=== PATIENT | female | born 1980 | race Caucasian/White ===

== ENCOUNTER 2016-06-20 16:56 | Emergency (ER) | payer MEDICARE, MEDICAID ==
[~2016-06-20] VITALS: Ht 177.8 cm; Wt 70.5 kg
[~2016-06-20 16:56] MED LIST: AMERGE PO; DIL2 PO; FLUO20SO PO; HYDR1TAB69 PO; KETO10TA PO; PREG50 PO; TAM4 PO; TPR100T PO
[2016-06-20 17:13] VITALS: BP 120/79; PULSE 110; RESP 16; O2SAT 100
--- NOTE | 2016-06-20 17:36 | ED.REPORT ---
HPI-Headache Date of Service June 20, 2016 ED Provider: Yovanny Mata MD Patient is a 35 year old female who presents to the ED complaining of a migraine onset over two weeks ago. Her migraine has been constant while she is awake and she has not slept in the past 48 hours due to her pain. Associated symptoms include decreased appetite, vomiting, photophobia, and sensitivity to sound. She denies numbness, weakness, blurred vision, LOC, head trauma, or any other symptoms. She reports that her headache is a constant, stabbing pain with pressure on the left side. The right side is intermittent and "more like a classical migraine". Patient reports that this is similar to her previous migraines. Last night she self-administered 30 mg of Toradol injection and a promethazine tab (25mg). Today she took 2 tramadol. Nursing Notes Stated Complaint: MIGRAINE Chief Complaint: Headache Nursing Notes Reviewed: Yes Allergies: Coded Allergies: Penicillins (Verified Allergy, Severe, HIVES, 06/20/16) metoclopramide (Verified Allergy, Severe, palpatations, anxiety, 06/20/16) Sulfa (Sulfonamide Antibiotics) (Verified Allergy, Unknown, 06/20/16) amoxicillin (Verified Allergy, Unknown, 06/20/16) methylergonovine maleate (Verified Allergy, Unknown, 06/20/16) Scheduled ([Amerge]) 2.5 MG PO UD FLUoxetine-Expunged Drug, Do not Renew! (Prozac-Expunged Drug, Do not Renew!) 20 Mg/5 Ml Solution 20 MG PO DAILY Hydrocod/APAP-Expunged, Do Not Renew! (VICODIN 5/500-Expunged Drug, Do Not Renew ) 1 Each Tablet 0.5 EACH PO PRN Hydromorphone-Expunged Drug, Do Not Renew! (Hydromorphone-Expunged Drug, Do Not Renew!) 2 Mg Tablet 1-2 MG PO Q4HP Ketorolac-Expunged Drug, Do Not Renew! (Ketorolac-Expunged Drug, Do Not Renew!) 10 Mg Tablet 10 MG PO PRN Pregabalin-Expunged Drug, Do Not Renew! (Lyrica-Expunged Drug, Do Not Renew!) 50 Mg Capsule 50 MG PO DAILY Tamsulosin-Expunged Drug, Do Not Renew! (Flomax-Expunged Drug, Do Not Renew!) 0.4 Mg Capsule 0.4 MG PO DAILY Topiramate-Expunged Drug, Do Not Renew! (Topiramate-Expunged Drug, Do Not Renew! ) 100 Mg Tab 100 MG PO DAILY General Time Seen by MD: 17:34 Chief Complaint Migraine headache Hx Obtained From: Patient Arrived By: Walk-in Sudden in Onset?: Yes Onset Occurred: More than a week ago... (2 weeks) Symptom Duration: Since onset Similar Sx Previous: Yes Risk-Headache )( SAH Risk Stratification No Coagulopathy, No Hypertension, No Polycystic kidney disease RF Statements: Risk factors reviewed )( IC Mass Risk Stratification No HIV RF Statements: Risk factors reviewed Past Medical History Past Medical History Hx of migraines Hx low CSF levels Arthritis Past Surgical History None reported Smoking History Never Smoker Social History Alcohol Use: Denies alcohol use Drug Use: Denies drug use Ambulatory Status Independent Review of Systems Review of Systems Note: +decreased appetite, sensitivity to sound Eyes: Reports: Photophobia, Denies: Blurred bilateral GI: Reports: Vomiting Neurologic: Reports: Headache, Denies: Change LOC, Numbness, Weakness Complete sys rev & neg: except as marked. Physical Exam Initial Vital Signs Vital Signs (First) Date Time Temp Pulse Resp B/P Pulse Ox O2 Delivery O2 Flow Rate FiO2 06/20/16 17:13 36.7 110 16 120/79 100 Room Air Initial VS: Reviewed Respiratory: Breath sounds normal, Clear to auscultation, No respiratory distress Cardiovascular: Regular rate & rhythm, Heart sounds normal, Intact distal pulses Abdomen / GI: Soft, Non-tender, No distention Skin: Warm, Dry Psychiatric: Mood/affect normal, Behavior normal, Normal thought content General/Constitutional: Awake, Alert, Well developed Uncomfortable Head / Eyes: Atraumatic, Normocephalic Neck: Supple, Full range of motion Neurologic: Oriented X3, Speech NL, CN II - XII intact No lateralizing Neuro findings Interpretation & Diagnostics Lab Results Interpretation Lab Results Interpretation: Preg negative Re-Eval/Medical Decision Med Decision/Clinical Course In summary, the patient is a 35-year-old female with past medical history significant for recurrent migraine headaches, who presents with headache has been persistent intermittently for the last several weeks and is similar in nature to her previous migraine headaches. Our primary and secondary assessment reveals an awake, alert patient in no acute distress. Hemodynamically stable and afebrile. Exam reveals normal neurologic exam. Overall presentation consistent with migraine headache. Considered other causes of headache to include: Subdural hemorrhage, subarachnoid hemorrhage, [employer] tumor , meningitis, encephalitis, venous sinus thrombosis, dissection, temporal arteritis, intracranial hypertension (psuedotumor cerebri), sinusitis or cervicalgia, although these are less likely based on the history, exam, lab, and radiographic findings as noted above. Based on this, I feel that imaging would be low yield and is not warranted at this time. Clinically there is no evidence that she is suffering from meningitis and she has supple neck and is afebrile. Discussed the risks and benefits of this with the patient who is in agreement. Also discussed with the patient at length that if symptoms change, worsen, or persist, should return to the ER for reevaluation. They understand and agree with the plan. Given the patient's workup, feel they are safe for discharge. The patient was treated with 2 L of IV fluids, Toradol, Benadryl, Tylenol and Zofran. This was not immediately effective. She comes with a protocol for treatment of her headaches from her neurologist and I followed this protocol administering 1 g of IV magnesium as well as 500 mg of methylprednisolone. Thereafter, she reported significant subjective improvement. Prior to discharge follow-up and return precautions were reviewed in detail with the patient who verbalized understanding and agreement with the plan. The patient was discharged in stable condition. Re-Evaluation/Progress #1: Time of Eval: 20:28 )( Patient Status: Condition improved Re-Evaluation/Progress Note: Rechecked patient. She is less nauseous and her headache is still present. She reports that she has had LP's with similar events that revealed low spinal fluid. Her headache seems to get worse upon standing. Re-Evaluation/Progress #2: Time of Eval: 21:20 Re-Evaluation/Progress Note: Rechecked pt. Mg was just started. Re-Evaluation/Progress #3: Time of Eval: 22:30 )( Patient Status: Condition improved Re-Evaluation/Progress Note: Rechecked patient. Discussed plan for discharge. Patient understands and agrees with plan. All questions addressed at this time. Counseled Regarding: Diagnosis, Lab results, Need for follow-up, When/why to return to ED Discharge & Departure Impression: Primary Impression: Migraine headache Migraine type: unspecified Status migrainosus presence: with status migrainosus Intractability: intractable Qualified Code: G43.911 - Migraine, unspecified, intractable, with status migrainosus Additional Impressions: Light sensitivity Sound sensitivity Laterality: unspecified laterality Qualified Code: H83.3X9 - Noise effects on inner ear, unspecified ear Nausea and vomiting Vomiting type: unspecified Vomiting Intractability: unspecified Qualified Code: R11.2 - Nausea with vomiting, unspecified Dehydration Disposition: Home Discharge Condition All VS Reviewed: Yes Condition: Improved Additional Instructions: Thank you for seeking care at the emergency room. It is difficult for us to make definitive diagnoses in the ED but we believe that you are experiencing a migraine headache. Our primary goal today in the ED was to evaluate you for any life-threatening conditions. Your evaluation was reassuring. You should follow-up with your primary doctor and neurologist in the next week. You should return to the ED immediately if you develop fevers, chills, vomiting , neck stiffness, vision changes, worsening headache, or any other concerning signs or symptoms. Thank you for letting us partake in your care today. Referrals: Will Garcia MD (PCP) Scribe Attestation Portions of this note were transcribed by Benjamin Quintanilla. I, Dr. Mata personally performed the history, physical exam and medical decision-making; I reviewed and confirmed the accuracy of the information in the transcribed note. Signed by: Benjamin Quintanilla 06/20/2016, [id number] copies to: Will Garcia MD, Beck O MD June 20, 2016 17:36 BENJAMIN QUINTANILLA June 20, 2016 18:43
[2016-06-20] MEDS ORDERED: 0.9% Sodium Chloride 1,000 ML IV ONE ×2 (18:49→18:50)
[2016-06-20] MEDS ORDERED: Ondansetron 2 mg/mL 2 mL Inj IVPUSH ONE (18:50)
[2016-06-20] MEDS ORDERED: Magnesium Sulf 2 Gm/50mL Water 1 GM in IV Premix 1 EACH IV ONE (20:35)
[2016-06-20] MEDS ORDERED: METHYLPRED SODIUM SUCC IV ONE (22:20)
[2016-06-20] MEDS ORDERED: DEXTROSE 5% IV ONE (22:20)
[2016-06-21 00:35] VITALS: BP 121/74; PULSE 87; RESP 16; O2SAT 100
== END 2016-06-21 00:50 | disposition home or self-care (01) ==
LOC: SED 16:56
DX: G43.911 Migraine, unspecified, intractable, with status migrainosus (principal); E86.0 Dehydration; R11.2 Nausea with vomiting, unspecified; Z88.0 Allergy status to penicillin; Z88.1 Allergy status to other antibiotic agents; Z88.2 Allergy status to sulfonamides; Z88.8 Allergy status to other drugs, medicaments and biological substances
CPT/HCPCS: 96361; 96365; 96375; 99284; J1200; J1885; J2060; J2405; J2930; J7030